=== PATIENT | female | born 1980 | race Caucasian/White ===

== ENCOUNTER 2018-06-12 09:33 | Day surgery (SDC) | payer OTHER ==
[~2018-06-12 09:33] MED LIST: CIPROFLOXACIN 400MG/D5W 200 ML IVPB; SEVOFLURANE 15 MIN
[2018-06-12] MEDS ORDERED: MIDAZOLAM 1 MG/ML 2 ML INJ (12:41)
[2018-06-12] MEDS ORDERED: LIDOCAINE 2% (SDV) 5 ML INJ (12:41)
[2018-06-12] MEDS ORDERED: PROPOFOL 20 ML (12:41)
[2018-06-12] MEDS ORDERED: CIPROFLOXACIN 400MG/D5W 200 ML (12:51)
[2018-06-12] MEDS ORDERED: ONDANSETRON 4 MG INJ (12:53)
[2018-06-12] MEDS ORDERED: DEXAMETHASONE 4 MG/ML 5 ML INJ (12:53)
[2018-06-12] MEDS ORDERED: FAMOTIDINE 20 MG INJ (12:53)
[2018-06-12] MEDS ORDERED: IOHEXOL 300MG/ML 30 ML BTL (13:18)
[2018-06-12] MEDS ORDERED: EPHEDrine SULFATE 50 MG/5 ML SYG (13:30)
== END 2018-06-12 15:10 | disposition home or self-care (01) ==
LOC: SDS 09:33
DX: N20.1 Calculus of ureter (principal); E66.9 Obesity, unspecified; Z68.30 Body mass index [BMI] 30.0-30.9, adult
CPT/HCPCS: 52356; 74430; 84703; 88300